=== PATIENT | female | born 1980 | race Caucasian/White ===

== ENCOUNTER 2019-01-04 11:19 | Emergency (ER) | payer OTHER ==
[~2019-01-04] VITALS: Ht 165.1 cm; Wt 74.8 kg
[~2019-01-04 11:19] MED LIST: ESCITALOPRAM OX20 MG PO; IBUPROFEN 800800 MG PO; LEFLUNOMIDE20 MG PO; LISINOPRIL5 MG PO; NEURONTIN600 MG PO; REMICADE 1100 MG/VIA; SEROQUEL XR50 MG PO
[2019-01-04] MEDS ORDERED: COSENTYX (150 MG/1 M SUBQ (11:24)
[2019-01-04] MEDS ORDERED: LIPITOR 20 MG T20 M1 PO (11:25)
[2019-01-04] MEDS ORDERED: TRAZODONE HCL100 MG PO (11:25)
[2019-01-04] MEDS ORDERED: ZANAFLEX4 MG PO (11:26)
[2019-01-04] MEDS ORDERED: RANITIDINE 150150 M1 PO (11:26)
[2019-01-04 13:23] VITALS: BP 135/77
== END 2019-01-04 13:24 | disposition home or self-care (01) ==
LOC: ER 11:19
DX: S93.691A Other sprain of right foot, initial encounter (principal); S93.491A Sprain of other ligament of right ankle, initial encounter; F17.210 Nicotine dependence, cigarettes, uncomplicated; I10 Essential (primary) hypertension; L40.9 Psoriasis, unspecified; Z90.710 Acquired absence of both cervix and uterus; Z88.0 Allergy status to penicillin; Z88.8 Allergy status to other drugs, medicaments and biological substances; X50.1XXA Overexertion from prolonged static or awkward postures, initial encounter; Y92.89 Other specified places as the place of occurrence of the external cause; Y93.89 Activity, other specified; Y99.8 Other external cause status

== ENCOUNTER 2019-11-04 20:53 | Emergency (ER) | payer OTHER ==
[~2019-11-04] VITALS: Ht 165.1 cm; Wt 86.2 kg
[~2019-11-04 20:53] MED LIST changes: +COSENTYX (150 MG/1 M SUBQ; +LIPITOR 20 MG T20 M1 PO; +RANITIDINE 150150 M1 PO; +TRAZODONE HCL100 MG PO; +ZANAFLEX4 MG PO
[2019-11-04] MEDS ORDERED: METHOTREXATE 22.5 M1 IM (21:02)
[2019-11-04] MEDS ORDERED: PREDNISONE 20 M20 M1 PO (21:22)
[2019-11-04 21:33] VITALS: BP 141/82
== END 2019-11-04 21:33 | disposition home or self-care (01) ==
LOC: ER 20:53
DX: L40.50 Arthropathic psoriasis, unspecified (principal); I10 Essential (primary) hypertension; F17.210 Nicotine dependence, cigarettes, uncomplicated; Z79.899 Other long term (current) drug therapy; Z88.0 Allergy status to penicillin; Z88.8 Allergy status to other drugs, medicaments and biological substances; Z90.710 Acquired absence of both cervix and uterus; Z98.890 Other specified postprocedural states